=== PATIENT | male | born 1985 | race Caucasian/White ===

== ENCOUNTER 2016-08-31 21:35 | Emergency (ER) | payer OTHER ==
[2016-08-31] MEDS ORDERED: KETOROLAC 60 MG/2 ML VIAL IM STA (22:44)
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
--- NOTE | 2016-08-31 23:14 | XR ---
EXAM: XR C SPINE INDICATION: Pain. COMPARISON: None. FINDINGS: 6 views of cervical spine are negative for fracture dislocation. Vertebral body height and alignment are maintained. Mineralization is within normal limits. Disc spaces are maintained. Posterior elements are intact and well aligned. Craniovertebral and atlantoaxial relationships are maintained. Bony foramina are patent bilaterally. Prevertebral soft tissues are within normal limits. Lung apices are clear. IMPRESSION: No significant abnormality.
[2016-09-01 00:01] VITALS: BP 113/62; PULSE 62; RESP 16; TEMP 97.9
== END 2016-09-01 | disposition home or self-care (01) ==
LOC: EC 21:35
DX: T74.11XA Adult physical abuse, confirmed, initial encounter (principal); S13.4XXA Sprain of ligaments of cervical spine, initial encounter; S40.021A Contusion of right upper arm, initial encounter; Y04.0XXA Assault by unarmed brawl or fight, initial encounter; Y07.59 Other non-family member, perpetrator of maltreatment and neglect; F17.200 Nicotine dependence, unspecified, uncomplicated
CPT/HCPCS: 72050; 96372; 99284; J1885